=== PATIENT | female | born 2000 | race Two or more races ===

== ENCOUNTER 2023-01-28 13:35 | Emergency (ER) | payer OTHER ==
[~2023-01-28] VITALS: Ht 160 cm; Wt 79.2 kg
[2023-01-28 14:17] VITALS: BP 123/75
[2023-01-28] MEDS ORDERED: PENICILLIN G BENZ 1200000 UNITS/2 ML SYRG IM ONE (14:30)
[2023-01-28] MEDS ORDERED: IBUP-1455 PO (16:17)
[2023-01-28] MEDS ORDERED: PENI500T2 PO (16:17)
[2023-01-28] MEDS ORDERED: ACET500T58 PO (16:17)
== END 2023-01-28 16:51 | disposition home or self-care (01) ==
LOC: ER 13:35
DX: J02.0 Streptococcal pharyngitis (principal); Z20.822 Contact with and (suspected) exposure to COVID-19
CPT/HCPCS: 36415; 87426; 87880